=== PATIENT | male | born 1945 | race Caucasian/White ===

== ENCOUNTER → 2016-10-13 | Outpatient (CLI) | payer MEDICARE, OTHER ==
[~2016-10-13] MED LIST: ASPIRIN 32325 MG/TA1 PO; ASPIRIN 32325 MG/TAB PO; ASPIRIN 81M81 MG/TA2 PO; ASPRIN; ATIVAN1 MG PO; BUDEPRION XL300 MG PO; CEFTIN250 M1 PO; CELEBREX 1100 MG/CAP PO; CELEBREX 200MG200 MG PO; CEPHALEXIN500 M1 PO; COLACE 100100 MG/CAP PO; COUMADIN 22.5 MG/TAB PO; COUMADIN4 MG PO; DIOVAN160 M1 PO; DIOVAN160 MG PO; DOCUSATE CALCI100 MG PO; DOCUSATE100 MG PO; FERROUS SULFAT325 M1 PO; GENTAMICIN EYE D5 ML OD; GERITOL COMPLET1 TAB PO; GUAIFEN-PSE 6001 TER PO; LORTAB 7.5/5001 TAB PO; MELOXICAM15 MG PO; MICARDIS HCT 251 TAB PO; MICARDIS80 MG PO; MOBIC15 MG PO; NATURAL IRON65 MG; NORCO 325 MG-51 TAB PO; OXYCONTIN 20MG20 MG PO; PAROXETINE20 MG PO; PAXIL 20MG20 MG PO; PERCOCET 325 MG1 TA2 PO; PROSCAR PO; ROBAXIN 50500 MG/TAB PO; ROXICODONE 55 MG/TAB PO; TERAZOSIN HCL PO; VITAMIN D31000 IU PO; WELLBUTRIN XL150 MG PO; WELLBUTRIN XL300 M1 PO; ZOCOR 20MG20 MG PO
== END ==
LOC: BHSO 10:10
DX: F33.1 Major depressive disorder, recurrent, moderate (principal)
CPT/HCPCS: 90791-AI

== ENCOUNTER 2016-11-01 18:30 | Emergency (ER) | payer MEDICARE, OTHER ==
[~2016-11-01] VITALS: Ht 172.7 cm; Wt 113.6 kg
[~2016-11-01 18:30] MED LIST changes: -ASPIRIN 81M81 MG/TA2 PO; -NATURAL IRON65 MG; -PERCOCET 325 MG1 TA2 PO
[2016-11-01 18:32] VITALS: BP 136/60; TEMP 98.4
[2016-11-01] MEDS ORDERED: ASPIRIN 81M81 MG/TA2 PO (18:40)
[2016-11-01] MEDS ORDERED: NATURAL IRON65 MG (18:41)
[2016-11-01] MEDS ORDERED: PERCOCET 325 MG1 TA2 PO (18:42)
[2016-11-01 20:04] LABS: BASO # 0.1 (0.0-0.2); BASO % 0.6 % (0.0-2.0); EOS # 0.3 (0.0-0.7); EOS % 3.3 % (0-4.0); GRAN # 6.3 (1.4-6.5); LYMPH # 1.5 (1.2-3.4); LYMPH % 15.8 % (20.0-51.0); MEAN CELL VOLUME 94 fl (80.0-100.0); MEAN CORPUSCULAR HGB CONC 34 g/dl (33.0-37.0); MEAN PLATELET VOLUME 9.8 fl (7.4-10.4); MONO # 1.2 (0.1-0.6); MONO % 12.1 % (1.7-9.3); PLATELET COUNT 147 K/mm3 (130-400); RED BLOOD COUNT 3.66 M/mm3 (4.20-5.60); REDCELL DISTRIBUTION WIDTH-CV 13.5 % (11.5-14.5); WHITE BLOOD COUNT 9.5 K/mm3 (4.8-10.8)
[2016-11-01 20:05] LABS: HEMATOCRIT 34.4 % (42.0-52.0); HEMOGLOBIN 11.8 g/dl (13.5-18.0); MEAN CORPUSCULAR HEMOGLOBIN 32 pg (27.0-31.0)
[2016-11-01 20:16] LABS: PH 5 (5-8); SQUAMOUS EPITHELIAL None Seen /hpf; URINE APPEARANCE Hazy; URINE BACTERIA Rare /hpf; URINE BILIRUBIN Negative (NEGATIVE); URINE BLOOD 3+ (NEGATIVE); URINE COLOR Yellow; URINE GLUCOSE Negative (NEGATIVE); URINE KETONE Negative (NEGATIVE); URINE RBC >50 /hpf; URINE UROBILINOGEN Negative (NEGATIVE)
[2016-11-01 20:27] LABS: ADJUSTED CALCIUM 8.7 mg/dL (8.4-10.2); ALBUMIN 3.7 gm/dL (3.5-5.0); BILIRUBIN,TOTAL 1.1 mg/dL (0.0-1.0); CALCIUM 8.5 mg/dL (8.4-10.2); CREATININE, serum 1.89 mg/dL (0.66-1.25); POTASSIUM 3.8 mmol/L (3.4-5.0); TOTAL PROTEIN 6.7 gm/dL (6.4-8.2)
[2016-11-01 20:54] VITALS: PULSE 69
== END 2016-11-01 20:56 | disposition home or self-care (01) ==
LOC: COL.ER 18:30
PROVIDERS: Emergency Medicine
DX: R33.9 Retention of urine, unspecified (principal); F17.210 Nicotine dependence, cigarettes, uncomplicated; Z87.442 Personal history of urinary calculi; Z90.89 Acquired absence of other organs; Z90.79 Acquired absence of other genital organ(s); Z87.438 Personal history of other diseases of male genital organs; Z98.890 Other specified postprocedural states; Z79.82 Long term (current) use of aspirin

== ENCOUNTER → 2016-11-18 | Outpatient (CLI) | payer MEDICARE, OTHER ==
[~2016-11-18] MED LIST changes: +ASPIRIN 81M81 MG/TA2 PO; +NATURAL IRON65 MG; +PERCOCET 325 MG1 TA2 PO
== END ==
LOC: BHSO 11:13
DX: F41.1 Generalized anxiety disorder (principal)

== ENCOUNTER → 2017-01-14 | Outpatient (CLI) | payer MEDICARE, OTHER | LOC: BHSO 15:35 | DX: F41.1 Generalized anxiety disorder (principal) ==

== ENCOUNTER → 2017-03-11 | Outpatient (CLI) | payer MEDICARE, OTHER | LOC: BHSO 13:02 | DX: F43.10 Post-traumatic stress disorder, unspecified (principal) ==

== ENCOUNTER → 2017-05-05 | Outpatient (CLI) | payer MEDICARE, OTHER | LOC: BHSO 13:34 | DX: F41.1 Generalized anxiety disorder (principal) | CPT/HCPCS: G0463 ==

== ENCOUNTER 2018-07-18 14:07 | Emergency (ER) | payer MEDICARE, OTHER ==
[~2018-07-18] VITALS: Ht 172.7 cm; Wt 113.6 kg
[2018-07-18 14:16] VITALS: TEMP 97.4
[2018-07-18 14:39] LABS: BASO # 0.1 (0.0-0.2); BASO % 0.8 % (0.0-2.0); EOS # 0.3 (0.0-0.7); EOS % 2.8 % (0-4.0); GRAN # 6.5 (1.4-6.5); GRAN % 69.9 % (42.2-75.2); HEMATOCRIT 38.1 % (42.0-52.0); HEMOGLOBIN 12.7 g/dl (13.5-18.0); LYMPH # 1.6 (1.2-3.4); LYMPH % 17.1 % (20.0-51.0); MEAN CELL VOLUME 95 fl (80.0-100.0); MEAN CORPUSCULAR HEMOGLOBIN 32 pg (27.0-31.0); MEAN CORPUSCULAR HGB CONC 33 g/dl (33.0-37.0); MEAN PLATELET VOLUME 9.6 fl (7.4-10.4); MONO # 0.8 (0.1-0.6); MONO % 8.3 % (1.7-9.3); PLATELET COUNT 218 K/mm3 (130-400); RED BLOOD COUNT 4.03 M/mm3 (4.20-5.60); REDCELL DISTRIBUTION WIDTH-CV 13.6 % (11.5-14.5)
[2018-07-18 14:40] LABS: PROTHROMBIN TIME 11.9 SECONDS (9.7-12.8)
[2018-07-18 14:43] LABS: PARTIAL THROMBOPLASTIN TIME 34.5 SECONDS (26.0-37.0)
[2018-07-18 14:47] LABS: ALANINE AMINOTRANSFERASE 23 U/L (21-72); ALBUMIN 4.2 gm/dL (3.5-5.0); ALKALINE PHOSPHATASE 119 U/L (50-136); ANION GAP 10 mmol/L (7-16); AST,SGOT 34 U/L (15-37); BILIRUBIN,TOTAL 0.8 mg/dL (0.0-1.0); BLOOD UREA NITROGEN 30 mg/dL (9-20); CARBON DIOXIDE 25 mmol/L (22-30); CHLORIDE 102 mmol/L (98-107); CREATININE, serum 1.55 (0.66-1.25); GLUCOSE 101 mg/dL (74-106); POTASSIUM 4.3 mmol/L (3.4-5.0); SODIUM 136 mmol/L (137-145); TOTAL PROTEIN 7.8 gm/dL (6.4-8.2)
[2018-07-18 14:58] LABS: TROPONIN-I < 0.012 ng/mL (0.000-0.035)
[2018-07-18] MEDS ORDERED: NEXIUM 40MG40 MG PO (16:51)
[2018-07-18 17:48] VITALS: BP 131/75; PULSE 68
== END 2018-07-18 18:50 | disposition home or self-care (01) ==
LOC: COL.ER 14:07
PROVIDERS: Family Medicine
DX: R10.13 Epigastric pain (principal); I10 Essential (primary) hypertension; Z87.891 Personal history of nicotine dependence; Z79.82 Long term (current) use of aspirin
CPT/HCPCS: C9113; J2270; J2405; J7030; Q9967

== ENCOUNTER 2018-07-29 05:23 | Day surgery (SDC) | payer MEDICARE, OTHER ==
[~2018-07-29] VITALS: Ht 172.7 cm; Wt 114.7 kg
[~2018-07-29 05:23] MED LIST changes: +NEXIUM 40MG40 MG PO
[2018-07-29 06:08] VITALS: BP 121/57; PULSE 67; TEMP 98.6
[2018-07-29] MEDS ORDERED: NORCO 325 MG-7.1 TAB PO (07:08)
[2018-07-29] MEDS ORDERED: ROBAXIN 75750 MG/TAB PO (07:08)
[2018-07-29] MEDS ORDERED: PROVIGIL200 MG PO (07:11)
[2018-07-29] MEDS ORDERED: LAMICTAL 100MG100 MG PO (07:12)
[2018-07-29] MEDS ORDERED: KLONOPIN 1MG1 MG PO (07:12)
[2018-07-29] MEDS ORDERED: PROVENTIL0.09 MG/A1 IH (07:13)
[2018-07-29] MEDS ORDERED: CIPRO 500MG TA500 MG PO (07:16)
[2018-07-29 08:20] VITALS: BP 126/53; PULSE 57
--- NOTE | 2018-07-29 08:20 | NUR ---
Patient returns to room 8 per cart from PACU and is awake and alert. Temp 97.3 and room air sats 95%. Cruz catheter connected to leg bag with yellow urine. Stat lock applied. IV fluids infusing #20G LW. Siderails up x2 and call light in reach. Taking applejuice and water. Spouse in room.
[2018-07-29 08:35] VITALS: BP 107/55; PULSE 56
--- NOTE | 2018-07-29 08:35 | NUR ---
Patient continues to rest and take fluids. Given muffin to eat. Denies pain or nausea.
[2018-07-29 08:50] VITALS: BP 117/56; PULSE 56
--- NOTE | 2018-07-29 08:50 | NUR ---
Given instructions on how to change the leg bag to dependent drainage bag. States that he has had to do this before. Given alcohol wipes to clean tips of bags with and tape to secure catheter with if STAT lock comes off. Denie pain or nausea.
[2018-07-29 09:05] VITALS: BP 116/54; PULSE 57
--- NOTE | 2018-07-29 09:05 | NUR ---
Room air sats 96%. Given follow up appointment date and time for 08/02/18 at 0900 in the office to have catheter removed.
--- NOTE | 2018-07-29 09:15 | NUR ---
IV discontinued and given dismissal instructions for catheter cares and use of leg bag and dependent drainage bag. Provided office number for questions and concerns.
[2018-07-29 09:25] VITALS: BP 112/64; PULSE 58; TEMP 97.2
--- NOTE | 2018-07-29 09:25 | NUR ---
Patient dismissed to home per private vehilce driven by spouse and taken to the front door per wheelchair and assisted into car by RN.
== END 2018-07-29 09:25 | disposition home or self-care (01) ==
LOC: SDCO 05:23
DX: N32.0 Bladder-neck obstruction (principal); Z79.899 Other long term (current) drug therapy; Z79.82 Long term (current) use of aspirin; I10 Essential (primary) hypertension; G47.33 Obstructive sleep apnea (adult) (pediatric); Z87.891 Personal history of nicotine dependence; E66.01 Morbid (severe) obesity due to excess calories; Z68.38 Body mass index [BMI] 38.0-38.9, adult; N40.1 Benign prostatic hyperplasia with lower urinary tract symptoms; R33.8 Other retention of urine; C61 Malignant neoplasm of prostate; Z87.442 Personal history of urinary calculi; F41.9 Anxiety disorder, unspecified; J44.9 Chronic obstructive pulmonary disease, unspecified
CPT/HCPCS: J0690; J1100; J1885; J2405; J2704; J3010; J3301; J7120

== ENCOUNTER 2019-04-07 10:56 | Emergency (ER) | payer MEDICARE, OTHER ==
[~2019-04-07] VITALS: Ht 172.7 cm; Wt 113.6 kg
[~2019-04-07 10:56] MED LIST changes: +CIPRO 500MG TA500 MG PO; +KLONOPIN 1MG1 MG PO; +LAMICTAL 100MG100 MG PO; +NORCO 325 MG-7.1 TAB PO; +PROVENTIL0.09 MG/A1 IH; +PROVIGIL200 MG PO; +ROBAXIN 75750 MG/TAB PO
[2019-04-07 11:04] VITALS: TEMP 98.1
[2019-04-07 11:26] LABS: HEMATOCRIT 37.9 % (42.0-52.0); HEMOGLOBIN 12.5 g/dl (13.5-18.0); MEAN CELL VOLUME 96 fl (80.0-100.0); MEAN CORPUSCULAR HEMOGLOBIN 32 pg (27.0-31.0); MEAN CORPUSCULAR HGB CONC 33 g/dl (33.0-37.0); MEAN PLATELET VOLUME 9.7 fl (7.4-10.4); PLATELET COUNT 146 K/mm3 (130-400); RED BLOOD COUNT 3.96 M/mm3 (4.20-5.60); REDCELL DISTRIBUTION WIDTH-CV 13.8 % (11.5-14.5)
[2019-04-07 11:37] LABS: ALANINE AMINOTRANSFERASE 35 U/L (21-72); ALKALINE PHOSPHATASE 90 U/L (50-136); ANION GAP 7 mmol/L (7-16); AST,SGOT 30 U/L (15-37); BILIRUBIN,TOTAL 0.9 mg/dL (0.0-1.0); BLOOD UREA NITROGEN 23 mg/dL (9-20); CALCIUM 8.6 mg/dL (8.4-10.2); CARBON DIOXIDE 25 mmol/L (22-30); CHLORIDE 106 mmol/L (98-107); GLUCOSE 99 mg/dL (74-106); POTASSIUM 4.4 mmol/L (3.4-5.0); SODIUM 139 mmol/L (137-145); TOTAL PROTEIN 7.1 gm/dL (6.4-8.2)
[2019-04-07 11:49] LABS: TROPONIN-I < 0.012 ng/mL (0.000-0.035)
[2019-04-07 11:55] LABS: EOSINOPHIL 1 % (0-4); LYMPHOCYTE 13 % (20.0-51.0); NEUTROPHILS 78 % (42.0-75.2)
[2019-04-07 11:56] LABS: PLATELET ESTIMATE NORMAL (NORMAL)
[2019-04-07 12:32] LABS: PROTHROMBIN TIME 11.6 SECONDS (9.7-12.8)
[2019-04-07 12:59] VITALS: BP 158/68; PULSE 60
== END 2019-04-07 12:59 | disposition home or self-care (01) ==
LOC: COL.ER 10:56
PROVIDERS: Emergency Medicine
DX: R06.00 Dyspnea, unspecified (principal); J44.9 Chronic obstructive pulmonary disease, unspecified; Z79.82 Long term (current) use of aspirin
CPT/HCPCS: J7030; J8540

== ENCOUNTER 2019-06-14 18:03 | Inpatient (IN) | payer MEDICARE, OTHER ==
[~2019-06-14] VITALS: Wt 118.6 kg
[~2019-06-14 18:03] MED LIST changes: -NATURAL IRON65 MG; +NATURAL IRON65 MG PO
[2019-06-14] MEDS ORDERED: ATIVAN 1MG T1 MG/TAB PO (18:18)
[2019-06-14 19:18] LABS: BASO # 0.1 (0.0-0.2); BASO % 0.5 % (0.0-2.0); EOS # 0.1 (0.0-0.7); EOS % 0.7 % (0-4.0); GRAN # 10.3 (1.4-6.5); GRAN % 88.8 % (42.2-75.2); HEMATOCRIT 39.7 % (42.0-52.0); LYMPH # 0.5 (1.2-3.4); MEAN CELL VOLUME 94 fl (80.0-100.0); MEAN CORPUSCULAR HEMOGLOBIN 31 pg (27.0-31.0); MEAN CORPUSCULAR HGB CONC 33 g/dl (33.0-37.0); MEAN PLATELET VOLUME 9.6 fl (7.4-10.4); MONO # 0.6 (0.1-0.6); PLATELET COUNT 186 K/mm3 (130-400); RED BLOOD COUNT 4.21 M/mm3 (4.20-5.60); REDCELL DISTRIBUTION WIDTH-CV 14.4 % (11.5-14.5)
[2019-06-14 19:23] LABS: PROTHROMBIN TIME 11.7 SECONDS (9.7-12.8)
[2019-06-14 19:25] LABS: PARTIAL THROMBOPLASTIN TIME 30.1 SECONDS (26.0-37.0)
[2019-06-14 19:33] LABS: ALANINE AMINOTRANSFERASE 27 U/L (4-49); ALBUMIN 4.1 gm/dL (3.5-5.0); ALKALINE PHOSPHATASE 95 U/L (50-136); ANION GAP 9 mmol/L (7-16); AST,SGOT 30 U/L (15-37); BILIRUBIN,TOTAL 1.2 mg/dL (0.0-1.0); BLOOD UREA NITROGEN 33 mg/dL (9-20); C-REACTIVE PROTEIN 1.3 mg/dL (0.0-0.9); CALCIUM 8.9 mg/dL (8.4-10.2); CARBON DIOXIDE 28 mmol/L (22-30); CHLORIDE 100 mmol/L (98-107); CREATININE, serum 1.58 (0.66-1.25); GLUCOSE 126 mg/dL (74-106); LIPASE 216 U/L (23-300); POTASSIUM 4.5 mmol/L (3.4-5.0); SODIUM 137 mmol/L (137-145); TOTAL PROTEIN 7.5 gm/dL (6.4-8.2)
[2019-06-14 19:39] LABS: COLLECTION METHOD CLEAN CATCH
[2019-06-14 19:42] LABS: TROPONIN-I < 0.012 ng/mL (0.000-0.035)
[2019-06-14 19:44] LABS: MUCOUS Present /lpf; PH 5 (5-8); SQUAMOUS EPITHELIAL None Seen /hpf; URINE APPEARANCE Clear; URINE BACTERIA None Seen /hpf; URINE BILIRUBIN Negative (NEGATIVE); URINE BLOOD Negative (NEGATIVE); URINE COLOR Yellow; URINE GLUCOSE Negative (NEGATIVE); URINE KETONE Negative (NEGATIVE); URINE LEUKOCYTE ESTERASE Negative (NEGATIVE); URINE NITRATE Negative (NEGATIVE); URINE PROTEIN(semi-quant) Negative (NEGATIVE); URINE RBC 0-2 /hpf; URINE UROBILINOGEN Negative (NEGATIVE)
--- NOTE | 2019-06-14 22:15 | NUR ---
PT ARRIVED TO FLOOR, ICE CHIPS, WARM BLANKETS BROUGHT IN PER PT REQUEST. DENIES PAIN OR DISCOMFORT, ORIENTED TO ROOM, SOCKS REMOVED, ASSESSMENT UNREMARKABLE, NO OTHER NEEDS AT THIS TIME
[2019-06-14] MEDS ORDERED: ULTRAM 50MG TAB50 MG PO (22:34)
[2019-06-14] MEDS ORDERED: LAMICTAL 100MG100 MG PO (22:35)
[2019-06-14] MEDS ORDERED: KLONOPIN 1MG1 MG PO (22:35)
[2019-06-14] MEDS ORDERED: VTAMINC250TA (23:15)
[2019-06-14] MEDS ORDERED: MEN'S ONE DAIL1 EACH PO (23:16)
[2019-06-14 23:31] VITALS: BP 111/49; PULSE 76; TEMP 100.6
[2019-06-15] VITALS (7 sets, daily range): BP systolic 109–136; BP diastolic 50–66; PULSE 63–77; TEMP 98.2–98.9
--- NOTE | 2019-06-15 00:30 | NUR ---
TABLE MAKER NOTIFIED OF FEVER, TYLENOL GIVEN, BLOOD CULTURES, CHEST XRAY AND GI PANEL ORDERED.
--- NOTE | 2019-06-15 02:45 | NUR ---
NOTIFIED BY ICU TELE OF ABNORMAL EKG RHYTHM. CAPTAIN WAITER AWARE, STAT EKG ORDERED.
--- NOTE | 2019-06-15 03:04 | NUR ---
PARTS MANAGER NOTIFIED OF EKG RESULTS, RESPIRATORY PANEL RESULTS, AND PLACEMENT OF CONTACT/DROPLET PRECAUTIONS.
--- NOTE | 2019-06-15 05:20 | NUR ---
PT SPIKED FEVER UPON ARRIVAL TO FLOOR, TYLENOL ADMINISTERED, RESPIRATORY PANEL SHOWED RSV+, PLACED ON DROPLET/CONTACT. ST DEPRESSION REPORTED FROM ICU, EKG SHOWED NSR & NON SPECIFIC TWAVE ABNORMALITY. PT NOT REPORTING PAIN OR DISCOMFORT. NO BLOODY STOOLS OR VOMITING SINCE ADMITTED TO FLOOR. IV DC'D FROM LAC AND STARTED IN LFA. PT DENYING ADDITIONAL NEEDS AT THIS TIME.
--- NOTE | 2019-06-15 05:46 | NUR ---
CONSENT OBTAINED ALONG WITH VITALS, AFEBRILE AT THIS TIME.
[2019-06-15 07:30] LABS: BASO % 0.5 % (0.0-2.0); EOS # 0.2 (0.0-0.7); EOS % 2.3 % (0-4.0); GRAN # 4.6 (1.4-6.5); GRAN % 70.7 % (42.2-75.2); LYMPH % 15.1 % (20.0-51.0); MEAN CELL VOLUME 96 fl (80.0-100.0); MEAN CORPUSCULAR HGB CONC 33 g/dl (33.0-37.0); MEAN PLATELET VOLUME 9.4 fl (7.4-10.4); MONO # 0.7 (0.1-0.6); MONO % 10.2 % (1.7-9.3); PLATELET COUNT 146 K/mm3 (130-400); RED BLOOD COUNT 3.46 M/mm3 (4.20-5.60); REDCELL DISTRIBUTION WIDTH-CV 14.8 % (11.5-14.5)
[2019-06-15 07:38] LABS: CALCIUM 8.1 mg/dL (8.4-10.2); CREATININE, serum 1.52 (0.66-1.25); POTASSIUM 4.1 mmol/L (3.4-5.0)
[2019-06-15 07:40] LABS: HEMATOCRIT 33.2 % (42.0-52.0); HEMOGLOBIN 10.9 g/dl (13.5-18.0); MEAN CORPUSCULAR HEMOGLOBIN 32 pg (27.0-31.0)
--- NOTE | 2019-06-15 09:08 | NUR ---
Pt assessment complete. Pt is laying in bed upon entry, he is A/O x4. His is at bedside. Pt's breathing is even and unlabored on RA. Pt denies SOB. Reports a nonproductive cough the last few days. Had body aches yesterday. No pain today. Denies N/V. Pt had clear liquids for breakfast, therefore won't have upper GI scope until this afternoon, discussed with patient importance of remaining NPO. IVF infusing without complications. No needs at this time. Call light within reach.
--- NOTE | 2019-06-15 16:25 | NUR ---
Printed Circuit Board Preassembler met with patient to discuss discharge planning. Patient lives in [place] with his Kassi (ph#[phone]) and sees Dr. Pierce for primary care. Patient obtains medications from either [facility] or [facility] and states he does not have any issues when he obtains his medications from [facility]. Patient uses a CPAP and no other DME. Patient reports independence with ADLS and plans to return home upon discharge. Patient states he has DPOA-HC completed. SW to continue to follow as needed.
--- NOTE | 2019-06-15 18:24 | NUR ---
Pt had upper scope today. Denied any pain or concerns after procedure. Has not had any stools today. POC discussed with patient and who verbalize understanding. Isolation precautions in place will continue to monitor.
--- NOTE | 2019-06-15 20:21 | NUR ---
At time of assessment, patient is sitting in chair watching tv. He voices that he is ready to go home but does not complain of pain or other medical concerns. Scheduled meds administered and vital signs taken. Will continue to monitor.
[2019-06-16] VITALS: BP 138/56; PULSE 71; TEMP 98.6
[2019-06-16 04:00] VITALS: BP 132/61; PULSE 67; TEMP 98.5
--- NOTE | 2019-06-16 05:50 | NUR ---
Patient has had an uneventful night. He has used the CPAP for half the night and took it off around 0400. Once CPAP was off, he was tolerating room air fine with an 02 sat of 92%. He does not complain of pain or any other concerns at this time.
[2019-06-16] MEDS ORDERED: PROTONIX 40MG T40 MG PO (07:56)
[2019-06-16 08:18] VITALS: BP 153/67; PULSE 70; TEMP 97.9
[2019-06-16 08:55] LABS: BASO % 0.6 % (0.0-2.0); EOS # 0.2 (0.0-0.7); EOS % 3.3 % (0-4.0); GRAN # 4.4 (1.4-6.5); GRAN % 66.1 % (42.2-75.2); HEMOGLOBIN 11.5 g/dl (13.5-18.0); LYMPH # 1.2 (1.2-3.4); LYMPH % 17.3 % (20.0-51.0); MEAN CELL VOLUME 94 fl (80.0-100.0); MEAN CORPUSCULAR HEMOGLOBIN 31 pg (27.0-31.0); MEAN CORPUSCULAR HGB CONC 33 g/dl (33.0-37.0); MEAN PLATELET VOLUME 9.6 fl (7.4-10.4); MONO # 0.7 (0.1-0.6); MONO % 10.9 % (1.7-9.3); PLATELET COUNT 171 K/mm3 (130-400); RED BLOOD COUNT 3.74 M/mm3 (4.20-5.60); REDCELL DISTRIBUTION WIDTH-CV 14.6 % (11.5-14.5)
--- NOTE | 2019-06-16 08:57 | NUR ---
PATIENT WORE HOSPITAL CPAP LAST NIGHT.
--- NOTE | 2019-06-16 09:00 | NUR ---
Assessment completed, alert/oriented, vital signs stable, denies pain or disocmfort, denies any further hemoptysis or blood stools, denies any N/V or abd pain, hemaglobin stable, heart RRR/ distal pulses are palpable, lungs CTA/ no respd.ifficulty, patient denies other needs, in and giving order to discharge home
[2019-06-16 09:01] LABS: HEMATOCRIT 35.1 % (42.0-52.0)
[2019-06-16 09:17] LABS: CALCIUM 8.9 mg/dL (8.4-10.2); CREATININE, serum 1.47 (0.66-1.25); POTASSIUM 4.4 mmol/L (3.4-5.0)
--- NOTE | 2019-06-16 10:34 | NUR ---
Discharge instructions discussed with patient and his son, instructed to follow up with PCp and GI as we have scheduled, discussed medications and ordered to stop ASA for now and to take Protonix as prescribed, script sent to pharmacy for him, IV and tele removed, he is abmulatory and I personalyl escorted them out the door
== END 2019-06-16 10:35 | disposition home or self-care (01) | DRG 382 ==
LOC: COL.ER 18:03 → MEDICAL 20:46
PROVIDERS: Emergency Medicine; Hospitalist; Internal Medicine Gastroenterology; Nurse Practitioner Family; ADMIT Internal Medicine
PROC: 0DJ08ZZ Inspection of Upper Intestinal Tract, Via Natural or Artificial Opening Endoscopic (ICD-10-PCS; principal; 2019-06-15 08:15)
DX: K22.11 Ulcer of esophagus with bleeding (principal); I10 Essential (primary) hypertension; N18.9 Chronic kidney disease, unspecified; I12.9 Hypertensive chronic kidney disease with stage 1 through stage 4 chronic kidney disease, or unspecified chronic kidney disease; J44.9 Chronic obstructive pulmonary disease, unspecified; G47.33 Obstructive sleep apnea (adult) (pediatric); F32.9 Major depressive disorder, single episode, unspecified; F41.9 Anxiety disorder, unspecified; K22.70 Barrett's esophagus without dysplasia; J06.9 Acute upper respiratory infection, unspecified; D63.1 Anemia in chronic kidney disease; F43.10 Post-traumatic stress disorder, unspecified; G89.29 Other chronic pain; E78.5 Hyperlipidemia, unspecified; Z79.82 Long term (current) use of aspirin; Z79.84 Long term (current) use of oral hypoglycemic drugs; Z79.891 Long term (current) use of opiate analgesic; Z96.653 Presence of artificial knee joint, bilateral; Z85.46 Personal history of malignant neoplasm of prostate; Z92.3 Personal history of irradiation; Z87.891 Personal history of nicotine dependence
CPT/HCPCS: 99222-AI; 99232-AI; 99239; C9113; J2405; J2704; J7030; Q9967

== ENCOUNTER 2020-03-07 12:39 | Day surgery (SDC) | payer MEDICARE, OTHER ==
[~2020-03-07] VITALS: Ht 167.6 cm; Wt 118.8 kg
[~2020-03-07 12:39] MED LIST changes: +ATIVAN 1MG T1 MG/TAB PO; +MEN'S ONE DAIL1 EACH PO; +PROTONIX 40MG T40 MG PO; +ULTRAM 50MG TAB50 MG PO; +VTAMINC250TA
[2020-03-07] MEDS ORDERED: ROXICODONE 55 MG/TAB PO (13:20)
[2020-03-07] MEDS ORDERED: CELEBREX 200MG200 MG PO (13:21)
[2020-03-07 13:22] VITALS: BP 115/80; PULSE 75; TEMP 98.3
[2020-03-07 15:07] VITALS: BP 118/67; PULSE 65; TEMP 97.3
--- NOTE | 2020-03-07 15:07 | NUR ---
The patient arrived back to [place] [facility] from the operating room at this time. The patient appears alert and oriented and denies any pain or nausea at this time. The patient appears to be resting comfortably at this time. Respirations even and unlabored. Call light is within reach. Will continue to monitor the patient.
[2020-03-07 15:22] VITALS: BP 120/66; PULSE 62
--- NOTE | 2020-03-07 15:22 | NUR ---
The patient's IV to his right hand is bleeing and it was removed at this time. A pressure dressing was applied to the area and the dried blood to his hand was removed. The patient requests to try some apple juice and a muffin at this time. Vital signs appear stable. Will continue to monitor the patient.
[2020-03-07 15:37] VITALS: BP 105/64; PULSE 62
--- NOTE | 2020-03-07 15:45 | NUR ---
The patient appeared to tolerate the food and drink well and requests another juice and muffin. Call light remains within reach. The patient has a reardon catheter in place which is set to a leg bag at this time. Will continue to monitor the patient.
[2020-03-07 15:55] VITALS: BP 121/54; PULSE 60
--- NOTE | 2020-03-07 15:55 | NUR ---
Discharge instructions were reviewed with the patient at this time. He states that he has "had a catheter before" and does not have any questions regarding reardon care at home. An appointment was made for reardon removal on ThursdayMar.09. The nurse instructed the patient to get dressed and notify the staff when he is ready to be escorted out.
--- NOTE | 2020-03-07 16:10 | NUR ---
The patient was escorted out via wheelchair to a private vehicle by INDIO Arias. The patient's belongings and discharge paperwork were sent with him. The patient's is present to drive him home.
== END 2020-03-07 16:10 | disposition home or self-care (01) ==
LOC: SDCO 12:39
DX: N32.0 Bladder-neck obstruction (principal); F32.9 Major depressive disorder, single episode, unspecified; N40.0 Benign prostatic hyperplasia without lower urinary tract symptoms; G43.909 Migraine, unspecified, not intractable, without status migrainosus; G47.33 Obstructive sleep apnea (adult) (pediatric); J44.9 Chronic obstructive pulmonary disease, unspecified; M19.90 Unspecified osteoarthritis, unspecified site; K21.9 Gastro-esophageal reflux disease without esophagitis; I12.9 Hypertensive chronic kidney disease with stage 1 through stage 4 chronic kidney disease, or unspecified chronic kidney disease; N18.9 Chronic kidney disease, unspecified; Z85.46 Personal history of malignant neoplasm of prostate; Z85.828 Personal history of other malignant neoplasm of skin; Z96.651 Presence of right artificial knee joint; Z79.82 Long term (current) use of aspirin; Z87.891 Personal history of nicotine dependence
CPT/HCPCS: A4215; C1726; C1769; J0690; J2704; J3301; J7030; Q9967

== ENCOUNTER 2021-04-17 12:22 | Day surgery (SDC) | payer MEDICARE, OTHER ==
[~2021-04-17] VITALS: Ht 174 cm; Wt 113.2 kg
[2021-04-17 13:02] VITALS: BP 151/73; PULSE 64; TEMP 97.7
[2021-04-17] MEDS ORDERED: PROVIGIL200 MG PO (13:34)
[2021-04-17] MEDS ORDERED: NEXIUM 40MG40 MG PO (13:34)
[2021-04-17 16:30] VITALS: BP 137/71; PULSE 56
--- NOTE | 2021-04-17 16:30 | NUR ---
Patient returns to room 8 per cart from PACU accompanied by Denise BORJAS and is awake and alert. IV fluids infusing. Cruz catheter to dependent drainage with yellow returns. Temp 98.5 and room air sats 98%. Denies pain or nausea. Siderails up x2 and call light in reach.
[2021-04-17 16:45] VITALS: BP 122/93; PULSE 58
--- NOTE | 2021-04-17 16:45 | NUR ---
Resting and is eating muffin and drinking juice and coffee.
[2021-04-17 17:00] VITALS: BP 136/62; PULSE 64
--- NOTE | 2021-04-17 17:00 | NUR ---
Urine flowing freely and is yellow. Continues to deny discomfort.
[2021-04-17 17:05] VITALS: BP 136/63; PULSE 64
--- NOTE | 2021-04-17 17:05 | NUR ---
Eating second muffin and drinking more juice and coffee. Continues to deny pain or nausea.
--- NOTE | 2021-04-17 17:20 | NUR ---
IV discontinued and site is free of redness. Patient is dressing self. Given dismissal instructions and instructed to call the office in AM for follow up appointment. Provided office number.
--- NOTE | 2021-04-17 17:24 | NUR ---
Patient dismissed to home driven by spouse and taken to vehicle per wheelchair and assisted into vehicle with instructions in hand.
[2021-04-17 18:03] VITALS: BP 137/77; PULSE 56; TEMP 97.5
== END 2021-04-17 17:24 | disposition home or self-care (01) ==
LOC: SDCO 12:22
DX: N32.0 Bladder-neck obstruction (principal); R39.12 Poor urinary stream; I12.9 Hypertensive chronic kidney disease with stage 1 through stage 4 chronic kidney disease, or unspecified chronic kidney disease; N18.9 Chronic kidney disease, unspecified; J44.9 Chronic obstructive pulmonary disease, unspecified; G47.33 Obstructive sleep apnea (adult) (pediatric); K21.9 Gastro-esophageal reflux disease without esophagitis; G43.909 Migraine, unspecified, not intractable, without status migrainosus; G89.29 Other chronic pain; M54.9 Dorsalgia, unspecified; M19.90 Unspecified osteoarthritis, unspecified site; F32.A Depression, unspecified; F43.10 Post-traumatic stress disorder, unspecified; F41.9 Anxiety disorder, unspecified; Z99.89 Dependence on other enabling machines and devices; Z79.899 Other long term (current) drug therapy; Z90.79 Acquired absence of other genital organ(s); Z85.46 Personal history of malignant neoplasm of prostate; Z85.828 Personal history of other malignant neoplasm of skin
CPT/HCPCS: C1726; C1729; C1769; J0690; J2405; J2704; J3010; J3301; J7120

== ENCOUNTER 2021-11-29 07:56 | Emergency (ER) | payer MEDICARE, OTHER ==
[~2021-11-29] VITALS: Ht 172.7 cm; Wt 110.5 kg
[~2021-11-29 07:56] MED LIST changes: +ZOCOR 40MG40 MG PO
[2021-11-29 08:08] VITALS: TEMP 96.8
[2021-11-29] MEDS ORDERED: NORVASC 5MG5 MG/TAB PO (08:11)
[2021-11-29 08:31] VITALS: BP 152/88; PULSE 61
== END 2021-11-29 08:45 | disposition home or self-care (01) ==
LOC: COL.ER 07:56
DX: I10 Essential (primary) hypertension (principal)

== ENCOUNTER 2021-12-30 13:28 | Emergency (ER) | payer MEDICARE, OTHER ==
[~2021-12-30] VITALS: Ht 172.7 cm; Wt 113.6 kg
[~2021-12-30 13:28] MED LIST changes: +NORVASC 5MG5 MG/TAB PO
[2021-12-30 13:47] VITALS: TEMP 98.1
[2021-12-30 15:40] LABS: BASO # 0.1 K/mm3 (0.0-0.2); BASO % 0.5 % (0.0-2.0); EOS # 0.2 K/mm3 (0.0-0.7); EOS % 1.8 % (0.0-4.0); GRAN # 9.9 K/mm3 (1.4-6.5); GRAN % 79.9 % (42.2-75.2); HEMATOCRIT 37.4 % (42.0-52.0); HEMOGLOBIN 12.6 g/dl (13.5-18.0); LYMPH # 1.3 K/mm3 (1.2-3.4); LYMPH % 10.3 % (20.0-51.0); MEAN CELL VOLUME 94 fl (80.0-100.0); MEAN CORPUSCULAR HEMOGLOBIN 32 pg (27-31); MEAN CORPUSCULAR HGB CONC 34 g/dl (33.0-37.0); MEAN PLATELET VOLUME 9.7 fl (7.4-10.4); MONO # 0.8 K/mm3 (0.1-0.6); MONO % 6.4 % (1.7-9.3); PLATELET COUNT 157 K/mm3 (130-400); RED BLOOD COUNT 3.98 M/mm3 (4.20-5.60)
[2021-12-30 15:57] LABS: ALBUMIN 3.6 gm/dL (3.4-4.8); BILIRUBIN,TOTAL 0.8 mg/dL (0.2-1.2); CREATININE, serum 1.46 mg/dL (0.72-1.25); POTASSIUM 4.5 mmol/L (3.5-4.5); TOTAL PROTEIN 7.2 gm/dL (6.2-8.1)
[2021-12-30 17:03] LABS: COLLECTION METHOD CLEAN CATCH
[2021-12-30 17:05] LABS: URINE APPEARANCE Cloudy (CLEAR/HAZY); URINE COLOR Yellow (YELLOW)
[2021-12-30 17:06] LABS: PH 6.5 (5.0-8.5); URINE PROTEIN(semi-quant) 1+ (NEGATIVE)
[2021-12-30 17:07] LABS: URINE BLOOD 2+ (NEGATIVE); URINE GLUCOSE Negative (NEGATIVE); URINE KETONE Negative (NEGATIVE); URINE NITRATE Positive (NEGATIVE); URINE UROBILINOGEN 0.2 E.U/dL (0.2-1.0)
[2021-12-30] MEDS ORDERED: CIPRO 500MG TA500 MG PO (17:23)
[2021-12-30] MEDS ORDERED: NORCO 325 MG-51 TAB PO (17:23)
[2021-12-30 17:41] VITALS: BP 133/73; PULSE 74
[2021-12-30 18:18] LABS: MUCOUS Present (NOT PRESENT); SQUAMOUS EPITHELIAL 0-2 /hpf (0-10); URINE BACTERIA None Seen /hpf (NONE SEEN); URINE RBC 20-50 /hpf (0-2); URINE WBC >50 /hpf (0-2)
== END 2021-12-30 17:41 | disposition home or self-care (01) ==
LOC: COL.ER 13:28
PROVIDERS: Personal Emergency Response Attendant
DX: N20.0 Calculus of kidney (principal); N39.0 Urinary tract infection, site not specified; N28.1 Cyst of kidney, acquired; Z87.891 Personal history of nicotine dependence
CPT/HCPCS: J0696; J2270; J2405; J7030; Q9967

== ENCOUNTER 2023-08-03 14:12 | Inpatient (IN) | payer MEDICARE, OTHER ==
[2023-08-03] VITALS (7 sets, daily range): BP systolic 119–165; BP diastolic 39–88; PULSE 81–91; TEMP 98–100
[~2023-08-03] VITALS: Ht 175.3 cm; Wt 114.6 kg
[~2023-08-03 14:12] MED LIST changes: +ATARAX 25MG25 MG/TAB PO; +PROAIR HFA0.09 MG/AC IH; +PYRIDIUM 100MG100 MG PO
[2023-08-03] MEDS ORDERED: NS 1,000 ML IV SCH ×2 (15:15→20:30)
[2023-08-03] MEDS ORDERED: Acetaminophen 325 MG TAB PO ONE (15:15)
[2023-08-03 15:42] LABS: HEMATOCRIT 42.1 % (42.0-52.0); MEAN CELL VOLUME 96 fl (80.0-100.0); MEAN CORPUSCULAR HEMOGLOBIN 32 pg (27-31); MEAN CORPUSCULAR HGB CONC 33 g/dl (33.0-37.0); MEAN PLATELET VOLUME 9.4 fl (7.4-10.4); PLATELET COUNT 165 K/mm3 (130-400); REDCELL DISTRIBUTION WIDTH-CV 13.7 % (11.5-14.5)
[2023-08-03 15:59] LABS: ALBUMIN 3.4 g/dL (3.4-4.8); CREATININE, serum 1.68 mg/dL (0.72-1.25); POTASSIUM 3.4 mEq/L (3.5-4.5); TOTAL PROTEIN 7.2 g/dl (6.2-8.1)
[2023-08-03 16:13] LABS: ANISOCYTOSIS 1+; BAND 12 % (0-10); LYMPHOCYTE 9 % (20.0-51.0); NEUTROPHILS 74 % (42.0-75.2); PLATELET ESTIMATE NORMAL (NORMAL)
[2023-08-03 16:18] LABS: BILIRUBIN,TOTAL 3.2 mg/dL (0.2-1.2)
[2023-08-03 17:13] LABS: PH 5.5 (5.0-8.5); URINE APPEARANCE CLOUDY (CLEAR/HAZY); URINE BLOOD 3+ (NEGATIVE); URINE COLOR ORANGE (YELLOW); URINE GLUCOSE NEGATIVE (NEGATIVE); URINE KETONE NEGATIVE (NEGATIVE); URINE NITRATE POSITIVE (NEGATIVE); URINE PROTEIN(semi-quant) 2+ (NEGATIVE)
[2023-08-03] MEDS ORDERED: Iohexol 300 - 100 ML VIAL IV ONE (17:28)
[2023-08-03 17:29] LABS: MUCOUS PRESENT (NOT PRESENT); URINE BACTERIA MANY /hpf (NONE SEEN)
[2023-08-03] MEDS ORDERED: Morphine 4 MG/ML VIAL IV ONE (18:00)
[2023-08-03] MEDS ORDERED: HYDROmorphone 1 MG/1 ML SYRINGE [PACU/SDC ONLY] IV PRN (18:30)
[2023-08-03] MEDS ORDERED: droPERidol 2.5 MG/ML 2 ML VIAL IV PRN (18:30)
[2023-08-03] MEDS ORDERED: hydrALAZINE 20 MG/ML 1 ML VIAL IV PRN (18:30)
[2023-08-03] MEDS ORDERED: Ondansetron 4 MG/2 ML VIAL IV PRN ×2 (18:30→20:30)
[2023-08-03] MEDS ORDERED: fentaNYL 50 MCG/ML 1 ML SYRINGE/VIAL [PACU/SDC ONLY] IV PRN (18:30)
[2023-08-03] MEDS ORDERED: Lidocaine PF 2% (20 MG/ML) 5 ML VIAL ONE (18:43)
[2023-08-03] MEDS ORDERED: NS 10 ML IV ONE (18:43)
[2023-08-03] MEDS ORDERED: dexAMETHasone 10 MG/ML VIAL ONE (18:43)
[2023-08-03] MEDS ORDERED: Ondansetron 4 MG/2 ML VIAL ONE (18:43)
[2023-08-03] MEDS ORDERED: fentaNYL 50 MCG/ML 2 ML VIAL ONE ×2 (18:43→19:22)
[2023-08-03] MEDS ORDERED: Succinylcholine PF 200 MG/10 ML SYRINGE IV ONE (18:53)
[2023-08-03] MEDS ORDERED: Iohexol 300 - 10 ML VIAL URETER -L ONE (19:21)
[2023-08-03] MEDS ORDERED: Lidocaine 2% (20 MG/ML) 20 ML UROJET UR ONE (19:25)
--- NOTE | 2023-08-03 20:18 | NUR ---
PT ARRIVES FROM PACU PER BED. IS AWAKE, ALERT AND ORIENTED. PT HUNGRY AND SANDWICH BOX PROVIDED. HAS CASANOVA TO BSD WITH ORANGE/LINDA URINE. BLE EDEMA NOTED, SCDS ON. HAS IVF TO RAC INFUSING WITHOUT PROBLEM. ADMISSION QUESTIONS INITIATED. DENIES PAIN. IHRW=[id number].
[2023-08-03] MEDS ORDERED: Acetaminophen 500 MG TAB PO PRN (20:30)
[2023-08-03] MEDS ORDERED: oxyCODONE 5 MG TAB PO PRN (20:30)
[2023-08-03] MEDS ORDERED: Polyethylene Glycol 3350 17 GM PDS PO PRN (20:30)
[2023-08-03] MEDS ORDERED: ROBAXIN 75750 MG/TAB PO (20:37)
[2023-08-03] MEDS ORDERED: Methocarbamol 750 MG TAB PO PRN (21:45)
[2023-08-03] MEDS ORDERED: hydrOXYzine HCl 25 MG TAB PO SCH (22:00)
[2023-08-03 23:01] LABS: COLLECTION METHOD CATHETER
[2023-08-04] VITALS (14 sets, daily range): BP systolic 102–148; BP diastolic 55–77; PULSE 56–70; TEMP 97.3–98.5
[2023-08-04] MEDS ORDERED: Heparin 5,000 UNITS/ML 1 ML VIAL SQ SCH
--- NOTE | 2023-08-04 00:10 | NUR ---
POST OP VS COMPLETE. PT TEMP=98.0. DENIES PAIN, VERY SLEEPY NOW.
--- NOTE | 2023-08-04 04:56 | NUR ---
REMAINS AFEBRILE. IVF CONTINUE. CASANOVA WITH GOOD URINE OUTPUT.
[2023-08-04 06:51] LABS: HEMATOCRIT 39.1 % (42.0-52.0); HEMOGLOBIN 13.3 g/dl (13.5-18.0); MEAN CELL VOLUME 94 fl (80.0-100.0); MEAN CORPUSCULAR HEMOGLOBIN 32 pg (27-31); MEAN CORPUSCULAR HGB CONC 34 g/dl (33.0-37.0); MEAN PLATELET VOLUME 9.9 fl (7.4-10.4); PLATELET COUNT 124 K/mm3 (130-400); RED BLOOD COUNT 4.15 M/mm3 (4.20-5.60); REDCELL DISTRIBUTION WIDTH-CV 13.6 % (11.5-14.5)
[2023-08-04 07:10] LABS: CALCIUM 8.6 mg/dL (8.4-10.2); CREATININE, serum 1.5 mg/dL (0.72-1.25); POTASSIUM 4.1 mEq/L (3.5-4.5)
--- NOTE | 2023-08-04 07:48 | NUR ---
LAB REPORTED POSITIVE BLOOD CULTURE FOR PATIENT, REPORTING GRAM NEGATIVE RODS, KLEBSIELA OXYTOCA. CALLED DR. OTERO TO REPORT. NO NEW ORDERS.
[2023-08-04 07:56] LABS: BAND 18 % (0-10); LYMPHOCYTE 3 % (20.0-51.0); NEUTROPHILS 76 % (42.0-75.2); PLATELET ESTIMATE NORMAL (NORMAL)
--- NOTE | 2023-08-04 08:22 | NUR ---
PATIENT ALERT AND ORIENTED X4. VSS. PATIENT HERE FOR SEPTIC KIDNEY STONE. CASANOVA TO DD WITH LINDA OUTPUT. PATIENT DENIES ANY PAIN/DISCOMFORT THIS AM. IV TO RIGHT AC WITH NS RUNNING AT 100ML/HOUR. ASSESSMENT PERFORMED. AM MEDS ADMINISTERED. PATIENT EATING BREAKFAST. NO FURTHER NEEDS. CALL LIGHT IN REACH.
[2023-08-04] MEDS ORDERED: Docusate Sodium 100 MG CAP PO SCH (09:00)
[2023-08-04] MEDS ORDERED: clonazePAM 1 MG TAB PO SCH (09:00)
[2023-08-04] MEDS ORDERED: lamoTRIgine 100 MG TAB PO SCH (09:00)
[2023-08-04] MEDS ORDERED: buPROPion XL (24-HR) 150 MG TAB PO SCH (09:00)
--- NOTE | 2023-08-04 11:36 | NUR ---
Senior Reactor Operator met with patient and to discuss discharge planning. Patient verified that he lives in [facility] with his /DPOA Kassi ([phone]). Patient sees Dr. Pierce as his PCP, uses [facility] or [facility] pharmacies, uses a CPAP and has a cane at home. reports that patient uses a livestock sorting stick for assistance most of the time. Patient does not have a DPOA on file at hospital, although states they have one completed. Encouraged her to bring copy for patient's chart. Discharge plan: Home
--- NOTE | 2023-08-04 12:32 | NUR ---
D: Initial visit: Plug Wirer stopped by room on rounds. A: Pt was resting and content in his chair with his in the room. Pt has no needs right now. P: Plug Wirer informed pt that if he needed anything to let his nurse know. Plug Wirer will follow up as needed.
[2023-08-04] MEDS ORDERED: Ondansetron 4 MG/2 ML VIAL IV PRN (16:45)
[2023-08-04] MEDS ORDERED: Acetaminophen 325 MG TAB PO PRN (16:45)
--- NOTE | 2023-08-04 18:49 | NUR ---
report received from saud dominguez. pt resting in bed finishing dinner. pt denies pain. call light in reach. all needs met at this time.
[2023-08-04] MEDS ORDERED: Atorvastatin 20 MG TAB PO SCH (21:00)
[2023-08-04] MEDS ORDERED: Simvastatin 40 MG **** subs to Atorvastatin 20 MG PO SCH (21:00)
--- NOTE | 2023-08-04 21:59 | NUR ---
shift assessment complete, see documentation. pt tolerated hs meds well. pt denies pain. call light in reach. all needs met at this time.
[2023-08-05] VITALS (11 sets, daily range): BP systolic 115–149; BP diastolic 66–83; PULSE 60–66; TEMP 97.4–99.5
[2023-08-05 06:40] LABS: BASO % 0.2 % (0.0-2.0); EOS % 0.1 % (0.0-4.0); GRAN # 15.8 K/mm3 (1.4-6.5); HEMATOCRIT 37.2 % (42.0-52.0); HEMOGLOBIN 12.3 g/dl (13.5-18.0); LYMPH # 0.9 K/mm3 (1.2-3.4); LYMPH % 5.1 % (20.0-51.0); MEAN CELL VOLUME 95 fl (80.0-100.0); MEAN CORPUSCULAR HEMOGLOBIN 32 pg (27-31); MEAN CORPUSCULAR HGB CONC 33 g/dl (33.0-37.0); MEAN PLATELET VOLUME 10.3 fl (7.4-10.4); MONO # 1.2 K/mm3 (0.1-0.6); MONO % 6.6 % (1.7-9.3); PLATELET COUNT 148 K/mm3 (130-400); REDCELL DISTRIBUTION WIDTH-CV 13.6 % (11.5-14.5)
--- NOTE | 2023-08-05 10:50 | NUR ---
PATIENT ALERT AND ORIENTED X4. VSS. PATIENT HERE FOR SEPTIC LEFT KIDNEY STONE. CASANOVA TO DD WITH LINDA OUTPUT. PATIENT DENIES ANY PAIN THIS AM. TOLERATING PO. NO FURTHER COMPLAINTS/NEEDS. CALL LIGHT IN REACH.
--- NOTE | 2023-08-05 19:04 | NUR ---
report received from saud dominguez. pt sitting in recliner watching tv. pt denies pain. call light in reach. all needs met at this time.
--- NOTE | 2023-08-05 21:14 | NUR ---
shift assessment complete, see documentation. pt refused hs meds because his throat is "scratchy". pt requested popsickle and stated that it helped and he feels better. call light in reach. all needs met at this time.
[2023-08-06] VITALS (13 sets, daily range): BP systolic 146–176; BP diastolic 74–84; PULSE 63–86; TEMP 97.4–100.1
[2023-08-06 07:09] LABS: HEMOGLOBIN 11.5 g/dl (13.5-18.0); MEAN CELL VOLUME 97 fl (80.0-100.0); MEAN CORPUSCULAR HEMOGLOBIN 31 pg (27-31); MEAN CORPUSCULAR HGB CONC 32 g/dl (33.0-37.0); MEAN PLATELET VOLUME 10.3 fl (7.4-10.4); PLATELET COUNT 135 K/mm3 (130-400); RED BLOOD COUNT 3.72 M/mm3 (4.20-5.60); REDCELL DISTRIBUTION WIDTH-CV 13.7 % (11.5-14.5)
[2023-08-06 07:23] LABS: CALCIUM 7.9 mg/dL (8.4-10.2); CREATININE, serum 1.22 mg/dL (0.72-1.25); POTASSIUM 4.1 mEq/L (3.5-4.5)
[2023-08-06 08:30] LABS: BAND 3 % (0-10); LYMPHOCYTE 13 % (20.0-51.0); METAMYELOCYTE 4 % (0-0); NEUTROPHILS 70 % (42.0-75.2); PLATELET ESTIMATE NORMAL (NORMAL)
[2023-08-06] MEDS ORDERED: HYDROCHLOROTHIAZIDE 25 MG PO SCH (09:01)
[2023-08-06] MEDS ORDERED: LOSARTAN 100 MG PO SCH (09:01)
--- NOTE | 2023-08-06 09:30 | NUR ---
PT LAYING IN BED, ALERT AND ORIENTEDX4. PT HAS NO COMPLAINTS OF PAIN RIGHT NOW. TOOK PT TO BATHROOM. PT HAD LARGE, LOOSE BOWEL MOVEMENT. ASSESSED AND GAVE MORNING MEDS. CALL LIGHT WITHIN REACH.
--- NOTE | 2023-08-06 10:05 | NUR ---
oyster worker attended clinical rounding and was informed pt can likely discharge tomorrow. SW attempted to meet with patient who was soundly asleep. SW completed IM from medicare with , Kassi. She signed and verbalized understanding. Copy provided and original in chart. Discharge Plan: home
--- NOTE | 2023-08-06 16:34 | NUR ---
CALL DR OTERO TO NOTIFY BLOOD PRESSURE 176/76. RECIEVED ORDERS TO CALL ULTRASOUND AND SEE IF THEY CAN DO LE DOPPLER TODAY.
--- NOTE | 2023-08-06 20:35 | NUR ---
PT A&O X4 LAYING IN BED. TEMP 100.1, GAVE PRN TYLENOL PER MAR, OTHER VSS. PT DENYING PAIN. CASANOVA TO DD WITH YELLOW OUTPUT. INT TO RT AC PATENT. PT DENYING FURTHER NEEDS. CALL LIGHT IN REACH
[2023-08-07] VITALS (7 sets, daily range): BP systolic 136–167; BP diastolic 71–81; PULSE 61–66; TEMP 98–98.3
--- NOTE | 2023-08-07 05:17 | NUR ---
PT RESTING IN BED WITH UNLABORED RESP. TEMP WNL AFTER PRN TYLENOL. CALL LIGHT IN REACH
[2023-08-07 07:40] LABS: HEMOGLOBIN 12.2 g/dl (13.5-18.0); MEAN CELL VOLUME 94 fl (80.0-100.0); MEAN CORPUSCULAR HEMOGLOBIN 31 pg (27-31); MEAN CORPUSCULAR HGB CONC 33 g/dl (33.0-37.0); MEAN PLATELET VOLUME 9.7 fl (7.4-10.4); PLATELET COUNT 151 K/mm3 (130-400); REDCELL DISTRIBUTION WIDTH-CV 13.4 % (11.5-14.5)
[2023-08-07 07:44] LABS: HEMATOCRIT 36.7 % (42.0-52.0)
[2023-08-07 08:05] LABS: CALCIUM 8.7 mg/dL (8.4-10.2); CREATININE, serum 1.14 mg/dL (0.72-1.25); POTASSIUM 3.9 mEq/L (3.5-4.5)
[2023-08-07 08:41] LABS: BAND 2 % (0-10); EOSINOPHIL 2 % (0-4); LYMPHOCYTE 11 % (20.0-51.0); METAMYELOCYTE 1 % (0-0); NEUTROPHILS 75 % (42.0-75.2); PLATELET ESTIMATE NORMAL (NORMAL)
[2023-08-07] MEDS ORDERED: CIPRO 500MG TA500 MG PO (09:11)
--- NOTE | 2023-08-07 10:53 | NUR ---
Patient resting in bed with family at his side. Patient hopeful for discharge home. Micro called per request for culture results. No answer to Parviz MÉNDEZ with Urology regauring reardon. Voicemail left for urology office regaurding reardon. awaiting return call. Discussed with Shandra Burks patient still having reardon in place. Reardon to DD with yellow urine. Int. Patient denies nausea, but was not intersted in breakfast. Will monitor
--- NOTE | 2023-08-07 14:29 | NUR ---
Patient resting in bed. Tolerated reardon removal and able to void in urinal without problems. (Parviz Loyola was called and orders obtained for reardon removed) called and updated. She will be in to case picker patient around 4. Patient ready to get home this afternoon.
--- NOTE | 2023-08-07 16:00 | NUR ---
Patient has voided without problems using urinal. Dressed for discharge and brief on. All discharge education given to patient and his . Med list reviewed with patient and and last time taken, as well as new script for cipro. Int DC. Patient wheeled out with all belingings. They deny questions or concerns.
== END 2023-08-07 16:00 | disposition home or self-care (01) | DRG 854 ==
LOC: COL.ER 14:12 → SURG 20:18
PROVIDERS: Physician Assistant; Urology; ADMIT Internal Medicine
PROC: 0T778DZ Dilation of Left Ureter with Intraluminal Device, Via Natural or Artificial Opening Endoscopic (ICD-10-PCS; principal; 2023-08-03 19:15)
PROC: BT1F1ZZ Fluoroscopy of Left Kidney, Ureter and Bladder using Low Osmolar Contrast (ICD-10-PCS; 2023-08-03 19:15)
DX: A41.59 Other Gram-negative sepsis (principal); N39.0 Urinary tract infection, site not specified; E78.5 Hyperlipidemia, unspecified; Z96.653 Presence of artificial knee joint, bilateral; F43.10 Post-traumatic stress disorder, unspecified; F41.9 Anxiety disorder, unspecified; F32.A Depression, unspecified; G47.33 Obstructive sleep apnea (adult) (pediatric); J44.9 Chronic obstructive pulmonary disease, unspecified; I12.9 Hypertensive chronic kidney disease with stage 1 through stage 4 chronic kidney disease, or unspecified chronic kidney disease; Z20.822 Contact with and (suspected) exposure to COVID-19; N20.0 Calculus of kidney; B96.1 Klebsiella pneumoniae [K. pneumoniae] as the cause of diseases classified elsewhere; B96.20 Unspecified Escherichia coli [E. coli] as the cause of diseases classified elsewhere; N18.9 Chronic kidney disease, unspecified; Z90.79 Acquired absence of other genital organ(s); Z90.49 Acquired absence of other specified parts of digestive tract; Z85.46 Personal history of malignant neoplasm of prostate; Z92.3 Personal history of irradiation; Z87.442 Personal history of urinary calculi; Z91.199 Patient's noncompliance with other medical treatment and regimen due to unspecified reason; Z79.899 Other long term (current) drug therapy; Z23 Encounter for immunization
CPT/HCPCS: C1769; C2617; J0690; J0744; J1100; J1644; J2270; J2405; J2543; J2704; J3010; J7030; Q3014; Q9967